=== PATIENT | male | born 1990 | race Caucasian/White ===

== ENCOUNTER 2017-02-24 12:37 | Emergency (ER) | payer SELFPAY ==
--- NOTE | 2017-02-24 13:15 | ED ---
Upper Extremity Pain - HPI Summary HPI Summary: Rt hand dominant pt here w/ Rt hand injury - was cutting burdock around 12 today with a knife and cut the lateral aspect of his lower hand. Bleeding, deep cut. He does not want anything for pain - does report pain with movement. Denies numbness, tingling, weakness. He is unsure of his last tetanus vaccine - declines today (explained risks of declining, pt voices understanding). No known drug allergies. - History of Current Complaint Chief Complaint: EDLacSutureRecheck Stated Complaint: RT HAND LAC Time Seen by Provider: 02/24/17 12:59 Hx Obtained From: Patient, Family/Director Telehealth - mom - Allergies/Home Medications Allergies/Adverse Reactions: Allergies Allergy/AdvReac Type Severity Reaction Status Date / Time No Known Allergies Allergy Verified 01/21/15 16:03 PMH/Surg Hx/FS Hx/Imm Hx Previously Healthy: Yes Endocrine/Hematology History: Denies: Hx Anticoagulant Therapy, Hx Blood Disorders, Hx Diabetes, Hx Thyroid Disease Cardiovascular History: Denies: Hx Hypertension Respiratory History: Denies: Hx Asthma, Hx Chronic Obstructive Pulmonary Disease (COPD) GI History: Denies: Hx Ulcer - Immunization History Immunizations Up to Date: Unable to Obtain/Confirm - declines tetanus vaccine today 02/24/2017 - aware of dangers Infectious Disease History: No Infectious Disease History: Denies: Hx Clostridium Difficile, Hx Hepatitis, Hx Human Immunodeficiency Virus (HIV), Hx of Known/Suspected MRSA, Hx Shingles, Hx Tuberculosis, Hx Known/ Suspected VRE, Hx Known/Suspected VRSA, History Other Infectious Disease, Traveled Outside the [place] in Last 30 Days - Family History Known Family History: Positive: None - Social History Occupation: Employed Full-time Alcohol Use: Occasionally Substance Use Type: Reports: Marijuana - recreationally Hx Tobacco Use: Yes Smoking Status (MU): Current Every Day Smoker Type: Cigarettes Amount Used/How Often: pipe Have You Smoked in the Last Year: Yes Review of Systems Positive: no symptoms reported Musculoskeletal: Other - see HPI Skin: Other - see HPI Neurological: Negative Psychological: Other - agitated All Other Systems Reviewed And Are Negative: Yes Physical Exam Triage Information Reviewed: Yes Vital Signs On Initial Exam: Initial Vitals Temp Pulse Resp BP Pulse Ox 98 F 117 17 108/59 95 02/24/17 12:40 02/24/17 12:40 02/24/17 12:40 02/24/17 12:40 02/24/17 12:40 Vital Signs Reviewed: Yes Appearance: Positive: Well-Appearing, Well-Nourished Skin: Positive: Warm - linear laceration over lateral aspect of Rt hand - distal to wrist in hypothenar region - tendon/muscle appears lacerated - no damaged vessels or nerves observed Head/Face: Positive: Normal Head/Face Inspection Eyes: Positive: EOMI ENT: Positive: Hearing grossly normal Respiratory/Lung Sounds: Positive: Breath Sounds Present Cardiovascular: Positive: Normal, Pulses are Symmetrical in both Upper and Lower Extremities Musculoskeletal: Negative: Strength/ROM Intact - pain/weakness w/ resisted ulnar deviation, resisted 5th digit abduction; all other digits and wrist ROM and strength intact Neurological: Positive: Alert, Oriented to Person Place, Time, CN Intact II- III. Negative: Sensory/Motor Intact - decreased sensation in Rt Psychiatric: Positive: Normal Procedures - Splinting Location: Rt hand/wrist Hand-Made Type: fiberglass Splint: ulnar Pre-Proc Neuro Vasc Exam: normal Post-Proc Neuro Vasc Exam: normal - Laceration/Wound Repair 1 Location: upper extremity - Rt hand Description: Linear Anesthesia: Local, Marcaine Length, Depth and Shape: 4cm x 1cm deep Betadine Prep?: Yes Irrigated w/ Saline (ccs): 250 - hibaclens solution and sterile saline solution Laceration/Wound Explored: clean Closure: Single Layer Suture Type: Nylon - 5-0 Number of Sutures: 5 Layer Closure?: No Sterile Dressing Applied?: Yes - xeroform + gauze + KEVON Diagnostics - Vital Signs Vital Signs Temp Pulse Resp BP Pulse Ox 02/24/17 12:40 98 F 117 17 108/59 95 - Laboratory Lab Statement: Any lab studies that have been ordered have been reviewed, and results considered in the medical decision making process. Course/Dx - Course Course Of Treatment: Spoke sascha Cerrato - clean, loose closure, splint, keflex and f/u w/ hand specialist tomorrow. Again, pt declined tetanus vaccine - aware of dangers and mom present - observed care plan. Reviewed danger s/sx of when to return to ED. - Diagnoses Provider Diagnoses: Laceration of right hand involving tendon - Physician Notifications Discussed Care of Patient With: Henrry Cerrato Discharge - Discharge Plan Condition: Stable Disposition: HOME Prescriptions: Cephalexin CAP* [Keflex CAP*] 500 mg PO QID #39 cap Ibuprofen TAB* [Motrin TAB* 600 MG] 600 mg PO Q6H PRN #20 tab PRN Reason: Pain Patient Education Materials: Laceration (ED), Tendon Laceration (ED), Splint Care (ED) Referrals: Henrry Cerrato MD [Medical Doctor] - Additional Instructions: Keep dressing and splint clean, dry and intact until seen by hand specialist tomorrow or Saturday. Call in the morning to schedule appointment. In the meantime, rest, ice, elevate hand You may take ibuprofen with food for pain Complete antibiotics as directed *If you develop numbness, tingling, pain -you may loosen KEVON wrap and elevate hand for 20 minutes. If no relief, return to ED
--- NOTE | 2017-02-24 13:34 | RAD ---
INDICATION: Right hand laceration COMPARISON: Right hand radiograph dated June 09, 2007 TECHNIQUE: 4 views of the right hand were obtained. FINDINGS: There is a visible subcutaneous soft tissue laceration overlying the ulnar aspect of the proximal right fifth metacarpal. The adequately corticated bones are in normal alignment. No significant focal osseous abnormality or fracture is seen. Joint spaces appear maintained. IMPRESSION: Evidence of soft tissue laceration without underlying bony injury. If the patient's symptoms persist, follow-up imaging is recommended.
[2017-02-24] MEDS ORDERED: Cephalexin CAP* 500 MG PO ONE (13:47)
[2017-02-24 15:47] VITALS: BP 110/73
== END 2017-02-24 15:56 | disposition home or self-care (01) ==
LOC: ED 12:37
DX: S66.921A Laceration of unspecified muscle, fascia and tendon at wrist and hand level, right hand, initial encounter (principal); S61.411A Laceration without foreign body of right hand, initial encounter; W26.0XXA Contact with knife, initial encounter; Y92.9 Unspecified place or not applicable
CPT/HCPCS: 12002; 99282; A9270-GY

== ENCOUNTER 2019-01-09 16:05 | Emergency (ER) | payer OTHER ==
[2019-01-09 16:17] VITALS: BP 129/81
--- NOTE | 2019-01-09 16:31 | UC ---
Bite Injury/Animal HPI - HPI Summary HPI Summary: 28-year-old male comes in with a chief complaint of a tick bite on his right upper thigh. Patient noticed today. He's outside a lot is not sure how long it was in there. He was able to remove it himself. He reports to me that there was a red spot there but no bull's-eye rash. Patient had a history of Lyme disease about 5 years ago which didn't included problem with his heart. No fevers or chills feels well today. - History of Current Complaint Chief Complaint: UCSkin Stated Complaint: TICK BITE Time Seen by Provider: 01/09/19 16:23 Pain Intensity: 0 - Allergies/Home Medications Allergies/Adverse Reactions: Allergies Allergy/AdvReac Type Severity Reaction Status Date / Time No Known Allergies Allergy Verified 01/09/19 16:16 PMH/Surg Hx/FS Hx/Imm Hx Previously Healthy: Yes - LYME CARDITIS Other History Of: Negative For: Anticoagulant Therapy - Surgical History Surgical History: None - Family History Known Family History: Positive: None - Social History Alcohol Use: Occasionally Substance Use Type: Marijuana Smoking Status (MU): Current Every Day Smoker Type: Cigarettes Amount Used/How Often: "few cigarrettes" Have You Smoked in the Last Year: Yes Household Exposure Type: Cigarettes - Immunization History Most Recent Influenza Vaccination: within past 2 years Most Recent Tetanus Shot: uncertain Most Recent Pneumonia Vaccination: never Review of Systems All Other Systems Reviewed And Are Negative: Yes Constitutional: Positive: Negative Skin: Positive: Other - SEE HPI Eyes: Positive: Negative ENT: Positive: Negative Respiratory: Positive: Negative Cardiovascular: Positive: Negative Gastrointestinal: Positive: Negative Motor: Positive: Negative Neurovascular: Positive: Negative Musculoskeletal: Positive: Negative Neurological: Positive: Negative Psychological: Positive: Negative Is Patient Immunocompromised?: No Physical Exam Triage Information Reviewed: Yes Appearance: Well-Appearing, No Pain Distress, Well-Nourished Vital Signs: Initial Vital Signs Temp 98.9 F 01/09/19 16:13 Pulse 77 01/09/19 16:13 Resp 18 01/09/19 16:13 BP 129/81 01/09/19 16:13 Pulse Ox 100 01/09/19 16:13 Vital Signs Reviewed: Yes Eye Exam: Normal Eyes: Positive: Conjunctiva Clear Neck: Positive: Supple Respiratory: Positive: Normal breath sounds Musculoskeletal: Positive: Strength Intact, ROM Intact Neurological: Positive: Alert, Muscle Tone Normal Psychological: Positive: Normal Response To Family, Age Appropriate Behavior Skin: Positive: Other - NO BULLS EYE RASH Bite Injury Course/Dx - Course Course Of Treatment: DUE TO HX LYME CARDITIS, PATIENT PREFERS 2 WEEK DOXY RX - Differential Dx/Diagnosis Provider Diagnosis: Tick bite of right thigh Discharge - Sign-Out/Discharge Documenting (check all that apply): Patient Departure All imaging exams completed and their final reports reviewed: No Studies - Discharge Plan Condition: Stable Disposition: HOME Prescriptions: DOXYcycline CAP(*) [DOXYcycline 100MG CAP(*)] 100 mg PO BID #28 cap Patient Education Materials: Tick Bite (ED) [place]errals: [facility] [Outside] Additional Instructions: FOLLOW UP WITH YOUR DOCTOR IF NOT COMPLETELY IMPROVED. GET RECHECKED SOONER IF YOUR CONDITION WORSENS; BULLS EYE RASH, SYMPTOMS OF LYME DISEASE OR ANY QUESTIONS OR CONCERNS. - Billing Disposition and Condition Condition: STABLE Disposition: Home
== END 2019-01-09 16:38 | disposition home or self-care (01) ==
LOC: UCEAST 16:05
DX: T63.481A Toxic effect of venom of other arthropod, accidental (unintentional), initial encounter (principal); Y92.9 Unspecified place or not applicable; F17.210 Nicotine dependence, cigarettes, uncomplicated; I51.89 Other ill-defined heart diseases
CPT/HCPCS: 99212; G0463